=== PATIENT | female | born 1955 | race Caucasian/White ===

== ENCOUNTER 2023-08-09 07:40 | Inpatient (IN) | payer BC, MEDICARE ==
[2023-08-09 08:05] LABS: #Monocytes 0.3 10x3/uL (0.0-1.1); #Neutrophils 1.5 10x3/uL (1.5-8.4); %Basophils 0.4 % (0.0-2.0); %Eosinophils 1.1 % (0.0-6.0); %Lymphocytes 33.8 % (18.0-47.0); %Monocytes 11.7 % (0.0-10.0); %Neutrophils 52.3 % (40.0-75.0); Hemoglobin 12.8 g/dL (12.0-15.5); Mean Corpuscular HGB CONC 34.6 g/dL (32.0-36.0); Mean Corpuscular Volume 89.6 fl (81.6-98.3); Platelet Count 177 10x3/uL (150-450); RBC Distribution Width 15.9 % (11.5-14.5); Red Blood Cell (RBC) Count 4.13 10x6/uL (3.90-5.03); White Blood Cell (WBC) Count 2.8 10x3/uL (3.5-10.5)
[2023-08-09 08:30] LABS: ALT (SGPT) 22 U/L (8-55); AST (SGOT) 35 U/L (5-34); Albumin 3.7 g/dL (3.4-4.8); Alkaline Phosphatase 151 U/L (40-110); Anion Gap 20 mmol/L (10-20); BUN (Urea Nitrogen) 21 mg/dL (9.8-20.1); Bilirubin, Total 0.7 mg/dL (0.2-1.2); Calc. Creatinine Clearance 0 mL/min (70-130); Calcium 8.4 mg/dL (7.8-10.44); Carbon Dioxide 26 mmol/L (23-31); Chloride 96 mmol/L (98-107); Estimated GFR 48; Globulin 2.3 g/dL (2.4-3.5); Glucose 145 mg/dL (80-115); Magnesium 1.7 mg/dL (1.6-2.6); Sodium 139 mmol/L (136-145)
[2023-08-09 08:34] LABS: Critical Call Chemistry SJOS.OD.@0833; Potassium 2.5 mmol/L (3.5-5.1)
[2023-08-09 08:35] LABS: Troponin I 0.189 ng/mL (< 0.028)
[2023-08-09] MEDS ORDERED: Potassium Chloride 20 MEQ TAB ONE (08:44)
[2023-08-09] MEDS ORDERED: Magnesium 2 GM/50 ML BAG (IN WATER) ONE (08:45)
[2023-08-09 08:50] LABS: SARS-CoV-2 NAA Rapid Test Not Detected (NotDetected)
[2023-08-09] MEDS ORDERED: Potassium Chloride 20 MEQ (100 mL) BAG ONE (08:58)
[2023-08-09 10:27] LABS: Actual Bicarbonate (HCO3v) 30.5 mEq/L (22-28); Analyzer IN Cardio CS ER; Base Excess 5.7 mEq/L (-2 - +2); Calcium, Ionized (venous) 0.97 mmol/L (1.16-1.32); Chloride (VBG) 93 mmol/L (98-106); Hematocrit-VBG 43 % (36.0-47.0); Hemoglobin (Hb) 14.7 g/dL (11.7-16.1); Potassium (VBG) 2.39 mmol/L (3.70-5.30); Puncture Site Other Site; RapidComm Collect By CBN; Sodium 130 mmol/L (133-146); pH (venous) 7.453 (7.32-7.43)
[2023-08-09 10:36] LABS: Bilirubin Neg (Negative); Blood, Urine 250 (Negative); Clarity Cloudy (Clear); Glucose, Urine (Dipstick) Normal (Negative); Ketone, Urine 15 mg/dL (Negative); Leukocyte Negative (Negative); Nitrite Positive (Negative); Protein, Urine (Dipstick) 100 mg/dl (Neg-Trace); Specific Gravity, Urine 1.015 (1.005-1.030)
[2023-08-09 10:48] LABS: Troponin I 0.182 ng/mL (< 0.028)
[2023-08-09 10:48] LABS: CAUTI Indications for Culture Pelvic or flank pain; Squamous Epithelial 0-3 HPF (0-3); WBC/HPF Greater than 50 HPF (0-3)
[2023-08-09 10:49] LABS: Bacteria/HPF 4+ HPF (None Seen)
[2023-08-09 10:51] LABS: Urine Culture Reflex Yes Yes
[2023-08-09] MEDS ORDERED: cefTRIAXone (ROCEPHIN) 1 GM VIAL ONE (11:52)
[2023-08-09] MEDS ORDERED: Glucagon 1 MG/ML KIT IM PRN (13:02)
[2023-08-09] MEDS ORDERED: Dextrose 5% in Water 1,000 ML IV PRN (13:02)
[2023-08-09] MEDS ORDERED: Ondansetron PF 4 MG/2 ML Vial IVP PRN (13:02)
[2023-08-09] MEDS ORDERED: Acetaminophen 325 MG TAB PO PRN (13:02)
[2023-08-09] MEDS ORDERED: HumaLOG 300 UNITS/3 ML VIAL SC PRN ×2 (13:02)
[2023-08-09] MEDS ORDERED: Acetaminophen 650 MG Suppository PR PRN (13:02)
[2023-08-09] MEDS ORDERED: Senokot S 8.6-50 MG TAB PO PRN (13:02)
[2023-08-09] MEDS ORDERED: Bisacodyl 5 MG TAB PO PRN (13:02)
[2023-08-09] MEDS ORDERED: Dextrose 50% Abboject 50 ML SYRINGE SLOW IVP PRN (13:02)
[2023-08-09] MEDS ORDERED: Ondansetron ODT 4 MG TAB PO PRN (13:02)
[2023-08-09] MEDS ORDERED: FLU VACC QS2023(65UP)/MF59C/PF 60 MCG/0.5 ML SYRINGE IM ONE (15:15)
[2023-08-09 16:48] VITALS: BMI 31.0
[2023-08-09 19:20] LABS: Sodium 137 mmol/L (136-145)
[2023-08-09 19:25] LABS: Potassium 2.9 mmol/L (3.5-5.1)
[2023-08-09 20:28] LABS: Hemoglobin A1c 5.9 % (4.0-6.0)
[2023-08-09] MEDS: Sodium Chloride 0.9% 1,000 ML IV SCH (21:20)
[2023-08-09] MEDS: Famotidine 20 MG TAB PO SCH (21:28)
[2023-08-10 04:40] LABS: #Monocytes 0.3 10x3/uL (0.0-1.1); #Neutrophils 1.3 10x3/uL (1.5-8.4); %Basophils 0.4 % (0.0-2.0); %Eosinophils 1.6 % (0.0-6.0); %Lymphocytes 34.9 % (18.0-47.0); %Monocytes 13.1 % (0.0-10.0); Hematocrit 30.6 % (34.9-44.5); Hemoglobin 10.5 g/dL (12.0-15.5); Mean Corpuscular HGB CONC 34.3 g/dL (32.0-36.0); Mean Corpuscular Hemoglobin 30.8 pg (27.0-33.0); Mean Corpuscular Volume 89.7 fl (81.6-98.3); Mean Platelet Volume 11.4 fl (7.4-10.4); Platelet Count 140 10x3/uL (150-450); Red Blood Cell (RBC) Count 3.41 10x6/uL (3.90-5.03); White Blood Cell (WBC) Count 2.5 10x3/uL (3.5-10.5)
[2023-08-10 04:47] LABS: ALT (SGPT) 25 U/L (8-55); AST (SGOT) 43 U/L (5-34); Alkaline Phosphatase 133 U/L (40-110); Anion Gap 14 mmol/L (10-20); BUN (Urea Nitrogen) 19 mg/dL (9.8-20.1); Bilirubin, Total 0.5 mg/dL (0.2-1.2); Calc. Creatinine Clearance 69 mL/min (70-130); Calcium 7.9 mg/dL (7.8-10.44); Carbon Dioxide 28 mmol/L (23-31); Chloride 98 mmol/L (98-107); Estimated GFR 60; Globulin 2.1 g/dL (2.4-3.5); Glucose 129 mg/dL (80-115); Protein, Total 5.1 g/dL (5.8-8.1); Sodium 137 mmol/L (136-145)
[2023-08-10 04:56] LABS: Critical Call Chemistry NUR.SR7 @0453; Potassium 2.5 mmol/L (3.5-5.1)
[2023-08-10] MEDS ORDERED: Magnesium Sulfate/D5W 1 GM/100 ML BAG IVPB SCH (05:15)
[2023-08-10] MEDS ORDERED: Magnesium Sulfate/D5W 1 GM in Premix 1 BAG IVPB SCH (05:30)
[2023-08-10] MEDS: Potassium Chloride 20 MEQ TAB PO SCH ×3 (05:44→13:24)
[2023-08-10] MEDS: Aspirin 81 mg Enteric Coated Tablet PO SCH (10:07)
[2023-08-10] MEDS: Famotidine 20 MG TAB PO SCH ×2 (10:08→21:08)
[2023-08-10] MEDS: Rosuvastatin 20 MG TAB PO SCH (10:08)
[2023-08-10] MEDS: Sodium Chloride 0.9% 1,000 ML IV SCH (13:24)
[2023-08-10] MEDS: Carvedilol 6.25 MG TAB PO SCH (16:11)
[2023-08-10] MEDS: hydrALAZINE 25 MG TAB PO SCH ×2 (16:11→21:08)
[2023-08-10] MEDS: Folic Acid 1 MG TAB PO SCH (21:08)
[2023-08-11] MEDS: Sodium Chloride 0.9% 1,000 ML IV SCH ×2 (03:58→14:29)
[2023-08-11 08:09] LABS: Anion Gap 14 mmol/L (10-20); BUN (Urea Nitrogen) 16 mg/dL (9.8-20.1); Calc. Creatinine Clearance 80 mL/min (70-130); Calcium 7.8 mg/dL (7.8-10.44); Carbon Dioxide 24 mmol/L (23-31); Chloride 104 mmol/L (98-107); Estimated GFR 72; Glucose 166 mg/dL (80-115); Potassium 3.6 mmol/L (3.5-5.1); Sodium 138 mmol/L (136-145)
[2023-08-11] MEDS: Aspirin 81 mg Enteric Coated Tablet PO SCH (08:51)
[2023-08-11] MEDS: Rosuvastatin 20 MG TAB PO SCH (08:51)
[2023-08-11] MEDS: Carvedilol 6.25 MG TAB PO SCH (08:51)
[2023-08-11] MEDS: Famotidine 20 MG TAB PO SCH (08:51)
[2023-08-11] MEDS: Folic Acid 1 MG TAB PO SCH (08:51)
[2023-08-11] MEDS: hydrALAZINE 25 MG TAB PO SCH ×2 (08:52→15:51)
[2023-08-11 16:58] VITALS: BP 132/73; TEMP 98.3
[2023-08-11] MEDS ORDERED: Carvedilol 12.5 MG TAB PO SCH (17:00)
[2023-08-12] MEDS ORDERED: Lisinopril 5 MG TAB PO SCH (09:00)
== END 2023-08-11 18:40 | disposition home or self-care (01) | DRG 640 ==
LOC: CSHERS 07:40 → CSHTELE 11:49
PROVIDERS: ADMIT Internal Medicine; ATTEND Internal Medicine
DX: E86.0 Dehydration (principal); G93.41 Metabolic encephalopathy; I50.21 Acute systolic (congestive) heart failure; I21.A1 Myocardial infarction type 2; N39.0 Urinary tract infection, site not specified; I13.0 Hypertensive heart and chronic kidney disease with heart failure and stage 1 through stage 4 chronic kidney disease, or unspecified chronic kidney disease; E53.0 Riboflavin deficiency; E87.6 Hypokalemia; E87.5 Hyperkalemia; N18.30 Chronic kidney disease, stage 3 unspecified; D63.1 Anemia in chronic kidney disease; E11.22 Type 2 diabetes mellitus with diabetic chronic kidney disease; I69.920 Aphasia following unspecified cerebrovascular disease; B96.20 Unspecified Escherichia coli [E. coli] as the cause of diseases classified elsewhere; G93.89 Other specified disorders of brain; Z11.52 Encounter for screening for COVID-19; Z79.4 Long term (current) use of insulin; Z79.84 Long term (current) use of oral hypoglycemic drugs; Z79.899 Other long term (current) drug therapy
CPT/HCPCS: 36415; 36416; 70450; 71045; 80048; 80053; 81001; 82607; 82805; 83036; 83735; 83880; 84443; 84484; 85025; 87077; 87086; 87186; 93005; 93010; 93306; 94760; 96374; 96375; J0696; J1815; J3475; J3480; J7050

== ENCOUNTER 2023-10-05 18:09 | Inpatient (IN) | payer BC, MEDICARE ==
[2023-10-05 19:09] LABS: Bilirubin Neg (Negative); Blood, Urine 150 (Negative); Clarity Cloudy (Clear); Glucose, Urine (Dipstick) Normal (Negative); Ketone, Urine 5 mg/dL (Negative); Leukocyte 500 (Negative); Nitrite Negative (Negative); Protein, Urine (Dipstick) 500 mg/dl (Neg-Trace); Urobilinogen Normal mg/dL (Less than 2)
[2023-10-05 19:38] LABS: Hematocrit 19.6 % (34.9-44.5); Hemoglobin 5.9 g/dL (12.0-15.5); Mean Corpuscular HGB CONC 30.1 g/dL (32.0-36.0); Mean Corpuscular Hemoglobin 34.7 pg (27.0-33.0); Mean Corpuscular Volume 115.3 fl (81.6-98.3); Mean Platelet Volume 11.6 fl (7.4-10.4); Platelet Count 203 10x3/uL (150-450); RBC Distribution Width 21.5 % (11.5-14.5); White Blood Cell (WBC) Count 4.1 10x3/uL (3.5-10.5)
[2023-10-05 19:39] LABS: Bacteria/HPF 4+ HPF (None Seen); CAUTI Indications for Culture Alt mental st,lethar; Squamous Epithelial 0-3 HPF (0-3); WBC/HPF Greater Than 50 HPF (0-3)
[2023-10-05 19:40] LABS: Urine Culture Reflex Yes Yes
[2023-10-05 19:44] LABS: ALT (SGPT) 273 U/L (8-55); AST (SGOT) 289 U/L (5-34); Albumin 2.8 g/dL (3.4-4.8); Alkaline Phosphatase 778 U/L (40-110); Anion Gap 25 mmol/L (10-20); BUN (Urea Nitrogen) 78 mg/dL (9.8-20.1); Bilirubin, Total 0.5 mg/dL (0.2-1.2); Calc. Creatinine Clearance 0 mL/min (70-130); Calcium 8.6 mg/dL (7.8-10.44); Carbon Dioxide 11 mmol/L (23-31); Chloride 106 mmol/L (98-107); Estimated GFR 11; Globulin 3.7 g/dL (2.4-3.5); Glucose 217 mg/dL (80-115); Potassium 5.3 mmol/L (3.5-5.1); Protein, Total 6.5 g/dL (5.8-8.1); Sodium 137 mmol/L (136-145)
[2023-10-05 19:57] LABS: Troponin I 13.859 ng/mL (< 0.028)
[2023-10-05] MEDS ORDERED: Calcium Gluc 4.6 MEQ/10 ML (100 MG/ML) ONE (20:01)
[2023-10-05 20:31] LABS: Actual Bicarbonate (HCO3a) 14.5 mEq/L (22-28); Analyzer IN Cardio CS ER; Base Excess (BEa) -8.6 mEq/L (-2.0 to +3.0); CO2 Tension 20.8 mmHg (35.0-45.0); Calcium, Ionized (arterial) 1.06 mmol/L (1.12-1.30); Hematocrit-ABG 16 % (36.0-47.0); Hemoglobin (Hb) 5.5 g/dL (12.0-16.0); O2 Tension (PaO2), arterial 59.3 mmHg (> 70.0); Potassium - ABG Lab 4.91 mmol/L (3.70-5.30); Puncture Site RBA; pH, Arterial 7.461 (7.35-7.45)
[2023-10-05] MEDS ORDERED: Acetaminophen 650 MG Suppository PR PRN (20:48)
[2023-10-05] MEDS ORDERED: Ondansetron PF 4 MG/2 ML Vial IVP PRN (20:48)
[2023-10-05] MEDS ORDERED: Glucagon 1 MG/ML KIT IM PRN (20:57)
[2023-10-05] MEDS ORDERED: Dextrose 50% Abboject 50 ML SYRINGE SLOW IVP PRN (20:57)
[2023-10-05] MEDS ORDERED: Dextrose 5% in Water 1,000 ML IV PRN (20:57)
[2023-10-05 22:31] LABS: D-Dimer Test 4.89 mcg/mL (0.19-0.50); INR-International Normal Ratio 1.2; PTT 26.4 sec (22.0-33.0); Prothrombin Time 13.3 sec (9.5-12.1)
[2023-10-05 23:10] LABS: Lactic Acid 7.2 mmol/L (0.5-2.2)
[2023-10-05] MEDS: Sodium Bicarbonate 150 MEQ in Dextrose 5% in Water 1,000 ML IV SCH (23:30)
[2023-10-05] MEDS ORDERED: Vancomycin Dose by Levels Sliding Scale (Wt 71-99) FS SCH (23:30)
[2023-10-05] MEDS: Insulin Regular 300 UNITS/3 ML VIAL IVP SCH (23:39)
[2023-10-05] MEDS: Albumin 25% 25 GM (100 mL) BOT IVPB SCH (23:52)
[2023-10-05] MEDS: Vancomycin 1.5 GRAM/300 ML BAG 1.5 GM in Premix 1 BAG IVPB SCH (23:52)
[2023-10-05] MEDS: Sodium Chloride 0.9% 1,000 ML IV SCH (23:56)
[2023-10-06] MEDS: Albumin 25% 25 GM (100 mL) BOT IVPB SCH (00:10)
[2023-10-06] MEDS: Pantoprazole 40 MG VIAL IVP SCH ×3 (00:10→08:16)
[2023-10-06] MEDS: Cefepime 2 GM in Sodium Chloride 0.9% 100 ML IVPB SCH (02:50)
[2023-10-06 03:20] LABS: Hematocrit 22.7 % (34.9-44.5); Hemoglobin 7.3 g/dL (12.0-15.5); Mean Corpuscular HGB CONC 32.2 g/dL (32.0-36.0); Mean Corpuscular Hemoglobin 34.6 pg (27.0-33.0); Mean Corpuscular Volume 107.6 fl (81.6-98.3); Mean Platelet Volume 11.6 fl (7.4-10.4); Platelet Count 154 10x3/uL (150-450); RBC Distribution Width 19.6 % (11.5-14.5); Red Blood Cell (RBC) Count 2.11 10x6/uL (3.90-5.03); White Blood Cell (WBC) Count 3.6 10x3/uL (3.5-10.5)
[2023-10-06 03:46] LABS: Anisocytosis MODERATE=16-30 cells (100X) (0-5/hpf); Band 28 % (5-11); Lymphocytes 13 % (21-51); Macrocytosis MODERATE=16-30 cells (100X) (0-5/hpf); Metamyelocyte 6 % (0-0); Monocytes 7 % (0-10); Myelocyte 1 % (0-0); Neutrophil 45 % (42-75); Nucleated RBC (Manual Ct) 1 % (0)
[2023-10-06 03:47] LABS: Vacuoles SLIGHT
[2023-10-06 03:48] LABS: Platelet Adequacy Comment Appears Adequate
[2023-10-06 03:52] LABS: Lactic Acid 3.7 mmol/L (0.5-2.2)
[2023-10-06 04:01] LABS: ALT (SGPT) 196 U/L (8-55); AST (SGOT) 173 U/L (5-34); Albumin 2.9 g/dL (3.4-4.8); Alkaline Phosphatase 581 U/L (40-110); Anion Gap 23 mmol/L (10-20); BUN (Urea Nitrogen) 79 mg/dL (9.8-20.1); CK (CPK) 97 U/L (29-168); Calc. Creatinine Clearance 19 mL/min (70-130); Calcium 8.3 mg/dL (7.8-10.44); Carbon Dioxide 13 mmol/L (23-31); Chloride 107 mmol/L (98-107); Estimated GFR 11; Globulin 2.6 g/dL (2.4-3.5); Glucose 236 mg/dL (80-115); Lipase 85 U/L (8-78); Magnesium 2.2 mg/dL (1.6-2.6); Potassium 5.4 mmol/L (3.5-5.1); Protein, Total 5.5 g/dL (5.8-8.1); Sodium 138 mmol/L (136-145)
[2023-10-06] MEDS: HumaLOG 300 UNITS/3 ML VIAL SC PRN (05:40)
[2023-10-06] MEDS: Rosuvastatin 20 MG TAB PO SCH (08:16)
[2023-10-06] MEDS ORDERED: Vancomycin 1 GM in Sodium Chloride 0.9% 250 ML 300 ML IVPB SCH (09:00)
[2023-10-06 09:07] LABS: Critical Call Chem Troponin I ICU.TD@0905; Troponin I 10.913 ng/mL (< 0.028)
[2023-10-06 10:37] LABS: Lactic Acid 3.5 mmol/L (0.5-2.2)
[2023-10-06 11:13] LABS: ALT (SGPT) 174 U/L (8-55); AST (SGOT) 128 U/L (5-34); Albumin 3.1 g/dL (3.4-4.8); Alkaline Phosphatase 491 U/L (40-110); Anion Gap 22 mmol/L (10-20); BUN (Urea Nitrogen) 77 mg/dL (9.8-20.1); Bilirubin, Total 0.9 mg/dL (0.2-1.2); Calc. Creatinine Clearance 19 mL/min (70-130); Calcium 7.9 mg/dL (7.8-10.44); Carbon Dioxide 16 mmol/L (23-31); Chloride 105 mmol/L (98-107); Estimated GFR 11; Globulin 2.4 g/dL (2.4-3.5); Glucose 263 mg/dL (80-115); Potassium 4.7 mmol/L (3.5-5.1); Protein, Total 5.5 g/dL (5.8-8.1); Sodium 138 mmol/L (136-145)
[2023-10-06] MEDS: Morphine 2 MG/ML VIAL SLOW IVP SCH (15:40)
[2023-10-06] MEDS ORDERED: Folic Acid 5 MG/ML MDV SC SCH (17:00)
[2023-10-06] MEDS: FOLIC ACID SC SCH ×2 (17:02→17:03)
[2023-10-06] MEDS: PREFILLED SC SCH ×2 (17:02→17:03)
[2023-10-06] MEDS: Morphine 2 MG/ML VIAL SLOW IVP PRN (20:55)
[2023-10-07] MEDS: Lorazepam 2 MG/ML VIAL SLOW IVP SCH ×3 (01:02→16:03)
[2023-10-07 01:23] LABS: Lactic Acid 2.7 mmol/L (0.5-2.2)
[2023-10-07 01:25] LABS: Vancomycin, Trough 20.7 ug/mL
[2023-10-07 01:28] LABS: ALT (SGPT) 169 U/L (8-55); AST (SGOT) 163 U/L (5-34); Albumin 3.7 g/dL (3.4-4.8); Alkaline Phosphatase 516 U/L (40-110); Anion Gap 24 mmol/L (10-20); BUN (Urea Nitrogen) 79 mg/dL (9.8-20.1); Bilirubin, Total 0.8 mg/dL (0.2-1.2); Calc. Creatinine Clearance 18 mL/min (70-130); Carbon Dioxide 17 mmol/L (23-31); Chloride 103 mmol/L (98-107); Estimated GFR 11; Globulin 1.9 g/dL (2.4-3.5); Glucose 69 mg/dL (80-115); Potassium 4.8 mmol/L (3.5-5.1); Protein, Total 5.6 g/dL (5.8-8.1); Sodium 139 mmol/L (136-145)
[2023-10-07 01:31] LABS: #Basophils 0.01 10x3/uL (0.0-0.2); #Eosinphils 0.02 10x3/uL (0.0-0.5); #Neutrophils 3.11 10x3/uL (1.5-8.4); %Basophils 0.2 % (0.0-2.0); %Eosinophils 0.5 % (0.0-6.0); %Lymphocytes 14.7 % (18.0-47.0); %Monocytes 11.5 % (0.0-10.0); %Neutrophils 71.3 % (40.0-75.0); Hematocrit 23.1 % (34.9-44.5); Hemoglobin 7.5 g/dL (12.0-15.5); Mean Corpuscular HGB CONC 32.5 g/dL (32.0-36.0); Mean Corpuscular Hemoglobin 34.2 pg (27.0-33.0); Mean Corpuscular Volume 105.5 fl (81.6-98.3); Mean Platelet Volume 11.8 fl (7.4-10.4); Platelet Count 151 10x3/uL (150-450); Red Blood Cell (RBC) Count 2.19 10x6/uL (3.90-5.03); White Blood Cell (WBC) Count 4.4 10x3/uL (3.5-10.5)
[2023-10-07 01:40] LABS: Critical Call Chem Troponin I @NOTIFIED ICU.CA1; Troponin I 9.034 ng/mL (< 0.028)
[2023-10-07] MEDS: Dextrose 10% in Water 1,000 ML IV SCH (04:39)
[2023-10-07 06:40] VITALS: BMI 34.4
[2023-10-07 06:47] VITALS: TEMP 97.2
[2023-10-07 16:16] VITALS: BP 90/56
== END 2023-10-07 16:19 | disposition hospice, inpatient (51) | DRG 871 ==
LOC: CSHERS 18:09 → CSHIMCU 20:24 → CSHICU 23:58 → CSHTELE 10-07 08:02
PROVIDERS: ADMIT Student in an Organized Health Care Education/Training Program; ATTEND Internal Medicine
PROC: 30233N1 Transfusion of Nonautologous Red Blood Cells into Peripheral Vein, Percutaneous Approach (ICD-10-PCS; principal; 2023-10-05)
PROC: 4A033R1 Measurement of Arterial Saturation, Peripheral, Percutaneous Approach (ICD-10-PCS; 2023-10-05)
PROC: 30233J1 Transfusion of Nonautologous Serum Albumin into Peripheral Vein, Percutaneous Approach (ICD-10-PCS; 2023-10-05)
PROC: 3E03329 Introduction of Other Anti-infective into Peripheral Vein, Percutaneous Approach (ICD-10-PCS; 2023-10-05)
DX: A41.9 Sepsis, unspecified organism (principal); G93.41 Metabolic encephalopathy; I21.A1 Myocardial infarction type 2; I50.23 Acute on chronic systolic (congestive) heart failure; R53.2 Functional quadriplegia; E87.20 Acidosis, unspecified; N39.0 Urinary tract infection, site not specified; N17.9 Acute kidney failure, unspecified; I13.0 Hypertensive heart and chronic kidney disease with heart failure and stage 1 through stage 4 chronic kidney disease, or unspecified chronic kidney disease; I42.9 Cardiomyopathy, unspecified; R65.20 Severe sepsis without septic shock; E87.5 Hyperkalemia; D53.9 Nutritional anemia, unspecified; E78.5 Hyperlipidemia, unspecified; Z79.82 Long term (current) use of aspirin; Z79.899 Other long term (current) drug therapy; Z79.4 Long term (current) use of insulin; N18.30 Chronic kidney disease, stage 3 unspecified; I69.820 Aphasia following other cerebrovascular disease; E11.22 Type 2 diabetes mellitus with diabetic chronic kidney disease
CPT/HCPCS: 36415; 36416; 36430; 36600; 51702; 70551; 71045; 74176; 76705; 80053; 80202; 81001; 82274; 82550; 82805; 83605; 83690; 83735; 83880; 84145; 84484; 85025; 85049; 85300; 85362; 85384; 85610; 85730; 86850; 86900; 86901; 87040; 87086; 93005; 93306; 93880; 93970; 94760; 96365; C9113; J0612; J0692; J1815; J2060; J2272; J3370; J3490; J7050; J7070; P9016; P9047

== ENCOUNTER 2023-10-07 16:27 | Inpatient (IN) | payer BC, MEDICARE, OTHER ==
[2023-10-07] MEDS ORDERED: Acetaminophen 650 MG Suppository PR PRN (16:45)
[2023-10-07] MEDS ORDERED: Ondansetron PF 4 MG/2 ML Vial IVP PRN (16:45)
[2023-10-07] MEDS ORDERED: Glycopyrrolate 0.4 MG/ 2 ML VIAL SLOW IVP PRN (16:45)
[2023-10-07] MEDS ORDERED: Haloperidol Lactate 5 MG/ML VIAL SLOW IVP PRN (16:45)
[2023-10-07] MEDS ORDERED: Bisacodyl 10 MG SUPP PR PRN (16:46)
[2023-10-07 17:55] VITALS: BMI 34.4
[2023-10-07] MEDS ORDERED: Glycopyrrolate 0.2 MG/ML 5 ML SYRINGE SLOW IVP PRN (18:00)
[2023-10-07] MEDS: Morphine 2 MG/ML VIAL SLOW IVP PRN (20:32)
[2023-10-07] MEDS: Lorazepam 2 MG/ML VIAL SLOW IVP PRN (20:34)
[2023-10-09 09:30] VITALS: BP 103/61; TEMP 98
[2023-10-09] MEDS: Scopolamine 1 mg/72 hour Patch TOP PRN (12:59)
== END 2023-10-09 17:20 | disposition expired | DRG 951 ==
LOC: CSHTELE 16:27
PROVIDERS: ADMIT Family Medicine; ATTEND Family Medicine
DX: Z51.5 Encounter for palliative care (principal); A41.9 Sepsis, unspecified organism; N39.0 Urinary tract infection, site not specified; I50.9 Heart failure, unspecified; D64.9 Anemia, unspecified; I11.0 Hypertensive heart disease with heart failure; E11.9 Type 2 diabetes mellitus without complications; Z86.16 Personal history of COVID-19; I25.2 Old myocardial infarction
CPT/HCPCS: J2060; J2272